=== PATIENT | female | born 1930 | race Caucasian/White ===

== ENCOUNTER 2017-05-22 12:40 | Emergency (ER) | payer MEDICARE ==
[2017-05-22 12:40] VITALS: BMI 21.2
[2017-05-22 14:16] VITALS: BP 153/70; PULSE 85; RESP 18; TEMP 97.9; O2SAT 98
== END 2017-05-22 14:13 | disposition left against medical advice (07) ==
LOC: C.ER 12:40
DX: Z02.89 Encounter for other administrative examinations (principal); M79.662 Pain in left lower leg